=== PATIENT | female | born 1985 | race Caucasian/White ===

== ENCOUNTER 2016-10-27 12:47 | Outpatient (CLI) | payer OTHER, BC | END 2016-10-27 12:48 | disposition home or self-care (01) | DRG 561 | LOC: CONVCARE 12:47 | PROVIDERS: ATTEND Orthopaedic Surgery | DX: Z47.89 Encounter for other orthopedic aftercare (principal) | CPT/HCPCS: 73560 ==

== ENCOUNTER 2017-07-21 08:10 | Outpatient (CLI) | payer OTHER, BC | END 2017-07-21 08:11 | disposition home or self-care (01) | DRG 950 | LOC: CONVCARE 08:10 | PROVIDERS: ATTEND Orthopaedic Surgery | DX: Z48.89 Encounter for other specified surgical aftercare (principal); Z98.890 Other specified postprocedural states; M25.562 Pain in left knee; R53.1 Weakness | CPT/HCPCS: 73564 ==

== ENCOUNTER 2017-09-21 08:20 | Day surgery (SDC) | payer OTHER, BC ==
[2017-09-21] MEDS ORDERED: ONDANSETRON HCL 4 MG/2 ML SOL ONE (09:08)
[2017-09-21] MEDS ORDERED: PROPOFOL 10 MG/ML EMU IV ONE (09:08)
[2017-09-21] MEDS ORDERED: KETOROLAC TROMETHAMINE 30 MG/ML SOL ONE (09:08)
[2017-09-21] MEDS ORDERED: FENTANYL 100MCG/2ML SOL ONE (09:09)
[2017-09-21] MEDS ORDERED: CLINDAMYCIN 150 MG/ML SOL ONE ×2 (09:12→09:56)
[2017-09-21] MEDS ORDERED: BUPIVACAINE HCL 0.25% MPF 10 ML SOL INFIL ONE (09:18)
[2017-09-21 11:06] VITALS: PULSE 68
[2017-09-21 11:08] VITALS: BP 136/88; RESP 15; TEMP 97.1; O2SAT 99
== END 2017-09-21 12:20 | disposition home or self-care (01) | DRG 554 ==
LOC: SURG 08:20
PROVIDERS: ATTEND Orthopaedic Surgery
DX: M24.662 Ankylosis, left knee (principal); M25.862 Other specified joint disorders, left knee; M65.9 Synovitis and tenosynovitis, unspecified
CPT/HCPCS: 99070; J1885; J2405; J3010; J3490; J2704